=== PATIENT | male | born 1985 | race Caucasian/White ===

== ENCOUNTER 2017-02-15 16:14 | Emergency (ER) | payer OTHER ==
[2017-02-15 19:59] VITALS: BP 125/68
== END 2017-02-15 19:50 | disposition home or self-care (01) ==
LOC: ED 16:14
DX: L02.31 Cutaneous abscess of buttock (principal)
CPT/HCPCS: J2001

== ENCOUNTER 2017-02-17 18:42 | Emergency (ER) | payer OTHER ==
[2017-02-17 19:50] VITALS: BP 150/83
== END 2017-02-17 19:50 | disposition home or self-care (01) ==
LOC: ED 18:42
DX: Z48.02 Encounter for removal of sutures (principal)

== ENCOUNTER 2017-05-16 14:28 | Emergency (ER) | payer OTHER ==
[~2017-05-16] VITALS: Ht 175.3 cm; Wt 109.8 kg
[2017-05-16 14:36] VITALS: Ht 175.3 cm; Wt 109.8 kg
[2017-05-16 15:56] VITALS: BP 129/84
== END 2017-05-16 15:56 | disposition home or self-care (01) ==
LOC: ED 14:28
DX: B34.9 Viral infection, unspecified (principal)
CPT/HCPCS: J1885; J7613; J7644; Q0162

== ENCOUNTER 2017-06-08 23:11 | Emergency (ER) | payer OTHER ==
[~2017-06-08] VITALS: Ht 175.3 cm; Wt 109.8 kg
[2017-06-09 00:32] VITALS: BP 148/85
== END 2017-06-09 00:32 | disposition home or self-care (01) ==
LOC: ED 23:11
DX: S60.352A Superficial foreign body of left thumb, initial encounter (principal); W22.8XXA Striking against or struck by other objects, initial encounter; Y93.89 Activity, other specified; Y92.89 Other specified places as the place of occurrence of the external cause; Y99.8 Other external cause status
CPT/HCPCS: J2001